=== PATIENT | female | born 1990 | race Caucasian/White ===

== ENCOUNTER 2019-08-10 12:50 | Emergency (ER) | payer SELFPAY ==
[~2019-08-10] VITALS: Ht 154.9 cm; Wt 86.2 kg
[2019-08-10 12:55] VITALS: Ht 154.9 cm; Wt 86.2 kg
[2019-08-10 13:40] VITALS: BP 145/79
== END 2019-08-10 13:40 | disposition home or self-care (01) ==
LOC: ED 12:50
DX: J20.9 Acute bronchitis, unspecified (principal)